=== PATIENT | female | born 1945 | race African-American/Black ===

== ENCOUNTER 2016-04-04 18:31 | Observation (INO) ==
--- NOTE | 2016-04-04 19:07 | ED.PDOC ---
General ED Provider: Dr. BALDOMERO MARTINEZ Chief Complaint: Respiratory Complaint Stated Complaint: Patient is a 70 year old femal who has a Pacemaker/ difibrilaltor who states that she having some wheezing 3 days ago with some nausea and diaphoresis. She also received a call from [employer] today and was told her defibrilator fired on Sunday at 4 in the morning. when she was having these symptoms. Pt stated she feels SOA when she walks, but no other symptoms. Time Seen by Physician: 19:06 Mode of Arrival: Walk-In Information Source: Patient Exam Limitations: No limitations Primary Care Provider: AMPARO DIAZ Nursing and Triage Documentation Reviewed and Agree: Yes Cardiovascular Complaint Exam - Chest Pain Complaint/Exam Onset: Sudden Duration: 1 hour Symptoms Are: Resolved Timing: Intermittent Associated Signs and Symptoms: Reports: Diaphoresis, Nausea, Short of air (with waking occationally ). Denies: Vomiting, Fever, Palpitations, Cough Related Surgical History: Reports: Pacemaker AMI/ACS Risk Factors: Reports: Hypertension TAD Risk Factors: Reports: Hypertension Prior Care for this Complaint: No Recent Stress Test: No Recent Echo/LV Function: No JVD Present: No Subcutaneous Emphysema Present: No Diminshed Breath Sounds: No Reproducible Chest Wall Pain: No Bilateral Pulses Present: No Unequal Pulses Noted: No If Risk Factors for AMI/ACS Consider: EKG, Cardiac Enzymes Differential Diagnoses: Other Quality Indicator For Non-Traumatic Chest Pain/Syncope: EKG Performed Review of Systems - Review Of Systems Constitutional: Reports: No symptoms Eyes: Reports: No symptoms Ears, Nose, Mouth, Throat: Reports: No symptoms Respiratory: Reports: Short of air, Wheezing Cardiac: Reports: No symptoms GI: Reports: Nausea (3 days ago ) : Reports: No symptoms Musculoskeletal: Reports: No symptoms Skin: Reports: No symptoms Neurological: Reports: No symptoms Endocrine: Reports: No symptoms, Other (diaphroresis on 3 days ago ) Hematologic/Lymphatic: Reports: No symptoms All Other Systems: Reviewed and Negative Past Medical History - Past Medical History Endocrine: Reports: None Cardiovascular: Reports: Hypertension Respiratory: Reports: None Hematological: Reports: Anemia Gastrointestinal: Reports: GERD Genitourinary: Reports: None Neuro/Psych: Reports: TIA Musculoskeletal: Reports: Arthritis Cancer: Reports: None Last Menstrual Period: N/A - Surgical History General Surgical History: Reports: Pacemaker (defibrilltor. ) - Family History Family History: Reports: Heart - Social History Smoking Status: Former smoker Hx Substance Use: No Alcohol Screening: None - Immunizations Tetanus Shot up to Date: Yes Physical Exam - Physical Exam Appearance: Well-appearing, No pain distress, Well-nourished Eyes: ETTA, EOMI, Conjunctiva clear ENT: Oropharynx normal Neck: Supple Respiratory: Airway patent, Breath sounds clear, Breath sounds equal, Respirations nonlabored Cardiovascular: RRR, Pulses normal, No rub, No murmur GI/: Soft, Nontender, No masses, Bowel sounds normal, No Organomegaly Musculoskeletal: Normal strength, ROM intact, No edema, No calf tenderness Skin: Warm, Dry, Normal color Neurological: Sensation intact, Motor intact, Reflexes intact, Cranial nerves intact, Alert, Oriented Psychiatric: Affect appropriate, Mood appropriate Interpretation - Urologic Surgeon Time of Urologic Surgeon Interpretation: 19:00 Ectopy: PVCs - EKG Interpretation Time of EKG #1: 19:16 Rate: Normal Rhythm: Sinus Ectopy: PVCs [place]: Left Interpretation: Multiple PVCS. Physician Notification - Case Discussed Physician Notified: Luis Time of Notification: 21:15 (Ok to admits for observation. ) Critical Care Note - Critical Care Note Total Time (mins): 15 Course - Course Hematology/Chemistry: 04/04/16 19:14 04/04/16 19:14 Orders, Labs, Meds: Lab Review 04/04/16 04/04/16 19:14 19:17 WBC 10.13 RBC 4.33 Hgb 12.2 Hct 35.9 L MCV 82.9 MCH 28.2 MCHC 34.0 RDW Coeff of Greg 15.6 H Plt Count 259 Immature Gran % (Auto) 0.3 Neut % (Auto) 84.9 Lymph % (Auto) 9.9 L Schuyler % (Auto) 3.9 Eos % (Auto) 0.7 Baso % (Auto) 0.3 Immature Gran # (Auto) 0.0 Neut # 8.6 H Lymph # 1.0 Schuyler # 0.4 Eos # 0.1 Baso # 0.0 D-Dimer 0.72 Sodium 142 Potassium 3.4 L Chloride 103 Carbon Dioxide 26 Anion Gap 16.4 BUN 16 Creatinine 0.89 Estimated GFR (MDRD) 76.00 BUN/Creatinine Ratio 17.97 Glucose 105 Calcium 9.5 Magnesium 2.2 Total Bilirubin 1.01 AST 25 ALT 19 Alkaline Phosphatase 62 Total Creatine Kinase 60 Troponin I 0.0740 B-Natriuretic Peptide 1452 H Total Protein 8.0 Albumin 4.1 Globulin 3.9 Albumin/Globulin Ratio 1.05 Orders Category Date Time Status PLACE PATIENT OBSERVATION .TO MEDSURG (MONITORED BED ADMISSION 04/04/16 21: 21 Active ) EKG-(ED ONLY) Stat CARDIO 04/04/16 19:06 Completed EKG-(IP & OP ONLY) Routine CARDIO 04/05/16 06:00 Ordered ACTIVITY .Up ad Jana CARE 04/04/16 21:23 Active INTAKE & OUTPUT Q8HR CARE 04/04/16 21:22 Active TELEMETRY MONITORING TELE CARE 04/04/16 21:23 Active VITAL SIGNS Q8HR CARE 04/04/16 21:23 Active CARDIAC DIET DIETARY 04/04/16 Breakfast Ordered BASIC METABOLIC PANEL DAILY@0600 LAB 04/05/16 06:00 Ordered BASIC METABOLIC PANEL DAILY@0600 LAB 04/06/16 06:00 Ordered BASIC METABOLIC PANEL DAILY@0600 LAB 04/07/16 06:00 Ordered BASIC METABOLIC PANEL DAILY@0600 LAB 04/08/16 06:00 Ordered BASIC METABOLIC PANEL DAILY@0600 LAB 04/09/16 06:00 Ordered BASIC METABOLIC PANEL DAILY@0600 LAB 04/10/16 06:00 Ordered BASIC METABOLIC PANEL DAILY@0600 LAB 04/11/16 06:00 Ordered BASIC METABOLIC PANEL DAILY@0600 LAB 04/12/16 06:00 Ordered BASIC METABOLIC PANEL DAILY@0600 LAB 04/13/16 06:00 Ordered BASIC METABOLIC PANEL DAILY@0600 LAB 04/14/16 06:00 Ordered BASIC METABOLIC PANEL DAILY@0600 LAB 04/15/16 06:00 Ordered BASIC METABOLIC PANEL DAILY@0600 LAB 04/16/16 06:00 Ordered BASIC METABOLIC PANEL DAILY@0600 LAB 04/17/16 06:00 Ordered BASIC METABOLIC PANEL DAILY@0600 LAB 04/18/16 06:00 Ordered BASIC METABOLIC PANEL DAILY@0600 LAB 04/19/16 06:00 Ordered BASIC METABOLIC PANEL DAILY@0600 LAB 04/20/16 06:00 Ordered BASIC METABOLIC PANEL DAILY@0600 LAB 04/21/16 06:00 Ordered BASIC METABOLIC PANEL DAILY@0600 LAB 04/22/16 06:00 Ordered BASIC METABOLIC PANEL DAILY@0600 LAB 04/23/16 06:00 Ordered BASIC METABOLIC PANEL DAILY@0600 LAB 04/24/16 06:00 Ordered BNP [B-TYPE NATRIURETIC PEPTIDE] Stat LAB 04/04/16 19:14 Completed CBC W/ AUTO DIFF Stat LAB 04/04/16 19:14 Completed COMPREHENSIVE METABOLIC PANEL Stat LAB 04/04/16 19:14 Completed CREATINE KINASE Stat LAB 04/04/16 19:14 Completed D-DIMER Stat LAB 04/04/16 19:17 Completed MAGNESIUM Stat LAB 04/04/16 19:14 Completed TROPONIN I Stat LAB 04/04/16 19:14 Completed Albuterol Sulfate [Proair Hfa] MEDS 04/04/16 21:26 Ordered 2 puff IH Q4-6H PRN Clopidogrel Bisulfate [Plavix] MEDS 04/05/16 09:00 Ordered 75 mg PO DAILY Enoxaparin Sodium [Lovenox] MEDS 04/05/16 09:00 Ordered 40 mg SUBCUT DAILY Furosemide [Lasix Tab] MEDS 04/05/16 09:00 Ordered 20 mg PO BID L.acidoph,Paracasei, B.lactis [Probiotic] MEDS 04/05/16 09:00 Ordered 1 cap PO DAILY Metolazone [Zaroxolyn] MEDS 04/04/16 21:26 Ordered 2.5 mg PO DAILY PRN Multivits-Min/Iron/FA/Lutein [Centrum Silver Women MEDS 04/05/16 09:00 Ordered Tablet] 1 tab PO DAILY Radiant-3 Fatty Acids/Fish Oil [Fish Oil 1,000 mg Capsule MEDS 04/05/16 09:00 Ordered ] 1 each PO DAILY Ondansetron HCl/Pf [Zofran 4 mg/2 ml] MEDS 04/04/16 21:21 Ordered 4 mg IVP Q6H PRN Potassium Chloride [Potassium Chloride Premix Run] 20 MEDS 04/04/16 21:25 Active meq Premix 100 ml Water 1 bag IV ONCE Potassium Chloride [Potassium Chloride] MEDS 04/05/16 09:00 Ordered 20 meq PO DAILY Pravastatin Sodium [Pravachol] MEDS 04/05/16 09:00 Ordered 20 mg PO DAILY Prednisone MEDS 04/06/16 09:00 Ordered 2.5 mg PO EVERY OTHER DAY Sotalol HCl [Betapace] MEDS 04/05/16 09:00 Ordered 40 mg PO BID RESUSCITATION STATUS Routine OTHERS 04/04/16 21:21 Ordered CHEST, 2 VIEWS PA & LAT Stat RADS 04/04/16 20:11 Taken Medications Generic Name Dose Route Start Last Admin Trade Name Freq PRN Reason Stop Dose Admin Albuterol Sulfate 2 puff 04/04/16 21:26 Proair Hfa IH Q4-6H PRN Shortness of breath Clopidogrel Bisulfate 75 mg 04/05/16 09:00 Plavix PO DAILY [facility] Enoxaparin Sodium 40 mg 04/05/16 09:00 Lovenox SUBCUT DAILY KAROL Furosemide 20 mg 04/05/16 09:00 Lasix Tab PO BID KAROL Potassium Chloride 20 meq/ 100 mls @ 50 mls/hr 04/04/16 21:25 Sterile Water IV 04/04/16 23:24 ONCE STA Metolazone 2.5 mg 04/04/16 21:26 Zaroxolyn PO DAILY PRN Edema Non-Formulary Medication 1 cap 04/05/16 09:00 L.Acidoph,Paracasei, B.Lactis [Probiotic] PO DAILY KAROL Non-Formulary Medication 1 tab 04/05/16 09:00 Multivits-Min/Iron/Fa/Lutein [Centrum Silver Women Tablet] PO DAILY KAROL Non-Formulary Medication 1 each 04/05/16 09:00 Radiant-3 Fatty Acids/Fish Oil [Fish Oil 1,000 Mg Capsule] PO DAILY KAROL Non-Formulary Medication 20 meq 04/05/16 09:00 Potassium Chloride [Potassium Chloride] PO DAILY KAROL Ondansetron HCl 4 mg 04/04/16 21:21 Zofran 4 Mg/2 Ml IVP Q6H PRN Nausea / Vomiting Pravastatin Sodium 20 mg 04/05/16 09:00 Pravachol PO DAILY KAROL Prednisone 2.5 mg 04/06/16 09:00 Prednisone PO EVERY OTHER DAY KAROL Sotalol HCl 40 mg 04/05/16 09:00 Betapace PO BID [facility] Vital Signs: Temp Pulse Resp BP Pulse Ox 04/04/16 18:31 97.4 F L 81 20 116/71 94 L ITALO Risk Score ITALO Risk Score: Risk Score Odds of by 30D 0 0.1 (0.1-0.2) 1 0.3 (0.2-0.3) 2 0.4 (0.3-0.5) 3 0.7 (0.6-0.9) 4 1.2 (1.0-1.5) 5 2.2 (1.9-2.6) 6 3.0 (2.5-3.6) 7 4.8 (3.8-6.1) Departure - Departure Time of Disposition: 21:31 Disposition: PLACED OBSERVATION Discharge Problem: Hypokalemia Dyspnea Qualifiers: Dyspnea type: dyspnea on exertion Qualifier Code: (R06.09) Other forms of dyspnea Condition: Fair Pt referred to PMD for follow-up: No (Admitted ) Allergies/Adverse Reactions: Allergies aspirin Adverse Reaction (Verified 12/28/15 00:34) cholecalciferol (vitamin D3) [From Vitamin D3] Adverse Reaction (Verified 00:34) ciprofloxacin Adverse Reaction (Verified 12/28/15 00:34) codeine Adverse Reaction (Verified 12/28/15 00:34) dexamethasone [From Decadron] Adverse Reaction (Verified 12/28/15 00:34) dexamethasone sod phosphate [From Decadron] Adverse Reaction (Verified 12/28/15 00:34) ergocalciferol (vitamin D2) [From Vitamin D2] Adverse Reaction (Verified 00:34) constipation fluticasone propionate [From Advair Diskus] Adverse Reaction (Verified 12/28/15 00:34) hydrochlorothiazide Adverse Reaction (Verified 12/28/15 00:34) angioedema salmeterol xinafoate [From Advair Diskus] Adverse Reaction (Verified 12/28/15 00 :34) spironolactone Adverse Reaction (Verified 12/28/15 00:34) Sulfa (Sulfonamide Antibiotics) Adverse Reaction (Verified 12/28/15 00:34) Home Medications: Ambulatory Orders Clopidogrel Bisulfate [Plavix] 75 mg PO DAILY 11/17/14 Furosemide [Lasix] 20 mg PO BID 11/17/14 Radiant-3 Fatty Acids/Fish Oil [Fish Oil 1,000 mg Capsule] 1 each PO DAILY Pravastatin Sodium [Pravachol] 20 mg PO DAILY 11/17/14 Sotalol HCl [Sotalol] 40 mg PO BID 11/17/14 Metolazone 2.5 mg PO DAILY PRN 12/28/15 Prednisone 2.5 mg PO EVERY OTHER DAY 12/28/15 Albuterol Sulfate [Proair Hfa] 2 puff INH Q4-6H PRN 04/04/16 L.acidoph,Paracasei, B.lactis [Probiotic] 1 cap PO DAILY 04/04/16 Multivits-Min/Iron/FA/Lutein [Centrum Silver Women Tablet] 1 tab PO DAILY Potassium Chloride 10 meq PO DAILY 04/04/16 Disposition Discussed With: Patient, Family
[2016-04-04 19:19] LABS: BASOPHILS % (AUTO) 0.3 % (0.0-3.0); EOSINOPHILS # (AUTO) 0.1 K/ul (0.0-0.7); EOSINOPHILS % (AUTO) 0.7 % (0.0-7.0); HEMATOCRIT 35.9 % (37.0-47.0); HEMOGLOBIN 12.2 g/dl (12.0-16.0); IMMATURE GRANULOCYTE % (AUTO) 0.3 % (0.0-5.0); LYMPHOCYTES % (AUTO) 9.9 (10.0-50.0); MEAN CORPUSCULAR HEMOGLOBIN 28.2 pg (27.0-31.0); MEAN CORPUSCULAR VOLUME 82.9 fl (81.0-99.0); MONOCYTES # (AUTO) 0.4 K/uL (0.4-2.0); MONOCYTES % (AUTO) 3.9 (0-10); NEUTROPHILS # (AUTO) 8.6 K/ul (2.0-6.9); NEUTROPHILS % (AUTO) 84.9; PLATELET COUNT 259 10^3/uL (140-440); RED BLOOD COUNT 4.33 10^6/ul (4.20-5.40); WHITE BLOOD COUNT 10.13 K/ul (4.6-10.2)
[2016-04-04 19:44] LABS: ALBUMIN 4.1 g/dL (3.4-5.0); ALBUMIN/GLOBULIN RATIO 1.05; ANION GAP 16.4; BILIRUBIN,TOTAL 1.01 mg/dL (0.00-1.20); BUN/CREATININE RATIO 17.97; CALCIUM 9.5 mg/dL (8.2-10.2); CREATININE 0.89 mg/dL (0.60-1.30); MAGNESIUM 2.2 mg/dL (1.7-2.2); POTASSIUM 3.4 mmol/L (3.5-5.10); TROPONIN I 0.074 ng/ml (0.0000-0.4000)
[2016-04-04] MEDS ORDERED: ZOFRAN 4 MG/2 ML IVP PRN (21:21)
[2016-04-04] MEDS ORDERED: POTASSIUM CHLORIDE PREMIX RUN 20 MEQ in PREMIX 100 ML WATER 1 BAG IV STA (21:25)
[2016-04-04] MEDS ORDERED: PROAIR HFA IH PRN (21:26)
[2016-04-04] MEDS ORDERED: ZAROXOLYN PO PRN (21:26)
[2016-04-04 22:39] VITALS: BMI 31.0
[2016-04-04] MEDS ORDERED: POTASSIUM CHLORIDE PREMIX RUN 100 ML IV ONE (23:29)
[2016-04-05 04:50] LABS: ANION GAP 12.2; BUN/CREATININE RATIO 17.89; CREATININE 0.95 mg/dL (0.60-1.30); POTASSIUM 3.2 mmol/L (3.5-5.10)
--- NOTE | 2016-04-05 05:18 | DI ---
EXAM: Chest, two views, 04/04/2016 HISTORY: Shortness of a air COMPARISON: 12/27/2015 FINDINGS / IMPRESSION: Cardiomediastinal contours appear enlarged. Mediastinal contours appear sim ilar to the prior study. Left-sided pacer device is in place. There is no focal pulmonary consolidation. No pleural effusion or pneumothorax.
[2016-04-05] MEDS ORDERED: K-DUR PO STA (08:45)
[2016-04-05] MEDS ORDERED: IRON PO SCH (09:00)
[2016-04-05] MEDS ORDERED: NON-FORMULARY MEDICATION (Potassium Chloride [Potassium Chloride] 20 MEQ) PO SCH ×44 (09:00→12:00)
[2016-04-05] MEDS ORDERED: K-DUR PO SCH ×2 (09:00→12:00)
[2016-04-05] MEDS ORDERED: NON-FORMULARY MEDICATION (Omega-3 Fatty Acids/Fish Oil [Fish Oil 1,000 Mg Capsule] 1 EACH) PO SCH ×22 (09:00)
[2016-04-05] MEDS ORDERED: OMEGA-3 FISH OIL PO SCH (09:00)
[2016-04-05] MEDS ORDERED: BETAPACE PO SCH (09:00)
[2016-04-05] MEDS ORDERED: LOVENOX SUBCUT SCH (09:00)
[2016-04-05] MEDS ORDERED: PLAVIX PO SCH ×2 (09:00→10:00)
[2016-04-05] MEDS ORDERED: PRAVACHOL PO SCH ×2 (09:00→10:00)
[2016-04-05] MEDS ORDERED: LASIX TAB PO SCH ×2 (09:00→11:45)
[2016-04-05] MEDS ORDERED: MULTIVITS MIN PO SCH (09:00)
[2016-04-05] MEDS ORDERED: [UNRECOGNIZED DRUG - OTHER] PO SCH (09:00)
[2016-04-05] MEDS ORDERED: LUTEIN PO SCH (09:00)
[2016-04-05] MEDS ORDERED: ACIDOPH PARACASEI B LACTIS PO SCH ×2 (09:00→12:00)
[2016-04-05] MEDS ORDERED: MULTIVITAMIN PO SCH (09:00)
[2016-04-05] MEDS ORDERED: SOTALOL HCL 40 MG PO SCH ×21 (09:45)
[2016-04-05] MEDS ORDERED: ZAROXOLYN PO PRN (09:55)
[2016-04-05] MEDS ORDERED: PROAIR HFA IH PRN (09:58)
[2016-04-05] MEDS ORDERED: FUROSEMIDE 10 MG PO SCH ×2 (11:15→11:45)
--- NOTE | 2016-04-05 13:10 | PCM.PROG ---
Attending Provider: ATTENDING PROVIDER: Dr. BLAKE ALATORRE DATE OF SERVICE: 04/05/16 SUBJECTIVE: The patient was admitted with palpitations. The patient has not had any palpitations since admission. She states she gets minimal shortness of breath with exertion but this is normal for her. The patient has no chest pain. No PND , no orthopnea. REVIEW OF SYSTEMS: CONSTITUTIONAL: No fever, no chills. ENDOCRINE: No weight loss or weight gain. HEENT: No sinus drainage, no sore throat. CVS: No angina symptoms. No CHF symptoms. No palpitations. No atypical chest pain for CAD. Shortness of breath on minimal exertion. No PND, no orthopnea. RESPIRATORY: No cough, no hemoptysis. GI: No melena. No abdominal pain. No nausea, no vomiting. : No hematuria. No polyuria. SKIN: No rash. No wounds. MUSCULOSKELETAL: No pain. HEAT [employer]IC: No blackout, no dizziness. No headache. No double vision. PSYCHIATRIC: Not anxious; no depression. No suicidal thoughts. No homicidal thoughts. PHYSICAL EXAMINATION: GENERAL: Sitting in bed in no distress. VITAL SIGNS: Temperature 97.7 F, Pulse 87, Respiratory Rate 16, BP 112/79, Pulse Ox 97% HEENT: Normocephalic, atraumatic. Mucosa is dry, pallor positive. NECK: No JVP, no carotid bruit. No lymphadenopathy. CARDIAC: S1, S2, no S3. No murmur, gallop or regurgitation. LUNGS: Clear to auscultation. ABDOMEN: Soft, non-tender. Bowel sounds active. No rigidity, guarding or CVA tenderness. EXTREMITIES: No clubbing, cyanosis or edema. NEUROLOGIC: Awake, alert and oriented x3. LYMPHATIC: No palpable lymph nodes SKIN: Not dry. Intact. MUSCULOSKELETAL: No joint swelling. LAB REVIEW: 04/05/16 04:00 04/05/16 04:00: Sodium 141, Potassium 3.2 L, Chloride 103, Carbon Dioxide 29, Anion Gap 12.2, BUN 17, Creatinine 0.95, Estimated GFR (MDRD) 70.00, BUN/ Creatinine Ratio 17.89, Glucose 108, Calcium 9.0 ASSESSMENT: 1. Palpitations 2. Hypokalemia 3. CHF, stable 4. AICD 5. Hypertension 6. Dyslipidemia PLAN: 1. Holter monitor 2. Repeat potassium 60 mg p.o. and 20 mg IV by 2 p.m. one time dose (patient refuses the IV potassium) so will give 20 mg p.o. Plan and coordination of the patient's care discussed in the presence of Finance Advisor and nurse. CONDITION: Stable SCRIBED BY: VIKAS CAMACHO Contact Centre Supervisor scribed while in presence of service performed by Dr. BLAKE ALATORRE on 04/05/16 ([id number])
[2016-04-05 14:29] VITALS: BP 110/65; TEMP 98.3
[2016-04-06] MEDS ORDERED: PREDNISONE PO SCH ×2 (08:00→09:00)
--- NOTE | 2016-04-07 10:05 | PN ---
DATE OF SERVICE: 04/04/16 CHIEF COMPLAINT: Palpitations SUBJECTIVE: The patient is a 70 year old female with history of dilated cardiomyopathy and AICD placement. The patient was having cough, congestion and shortness of breath but the patient felt like she had a shock for AICD and started having some palpitations so the patient got worried and came to the emergency room. The patient was seen by Dr. Dewitt and the evaluation showed the patient was mildly hypokalemic 3.4, BNP 1452 and her EKG showed lots of PVC's. Given her age and the multiple medical problems the patient was admitted for the observation for the palpitation and the hypokalemia. REVIEW OF SYSTEMS: CONSTITUTIONAL: No fever, no chills. Weakness and tiredness. HEENT: Normal. ENDOCRINE: No weight gain, no weight loss. CVS: No angina symptoms. No CHF symptoms. Palpitations. No atypical chest pain for CAD. Shortness of breath. No PND, no orthopnea. RESPIRATORY: No cough, no hemoptysis. GI: No nausea, no vomiting. No abdominal pain. : No hematuria. No polyuria. MUSCULOSKELETAL:. No joint swelling. PSYCHIATRIC: Not anxious. No depression. No suicidal thoughts. No homicidal thoughts. SKIN: Intact. No rash. PHYSICAL EXAMINATION: V/S: Blood pressure 116/71, respiratory 20, heart rate 85 and saturation 95%. HEENT: Normocephalic, atraumatic. Ears, eyes, nose and throat normal. Mucosa Dry. NECK: Supple. No JVD, no carotid bruit. No lymphadenopathy. LUNGS: Decreased and clear to auscultation. No rales or rhonchi. HEART: S1, S2 normal. No S3. No murmur, gallop or regurgitation. ABDOMEN: Soft, nontender. Bowel sounds active. No rigidity. No rebound or guarding. No CVA tenderness. EXTREMITIES: No clubbing, cyanosis or pedal edema. MUSCULOSKELETAL: No joint swelling. NEUROLOGIC: Awake, alert, oriented times three. No focal deficit. LYMPHATIC: No lymph nodes palpable. SKIN: Intact. LABS: WBC 10.13, hgb 12.2, hct 35.9, plt count 259, D-dimer 0.72, sodium 142, potassium 3.4, chloride 103, bicarb 26, BUN 16, creatinine 0.89 and BNP 1452. ASSESSMENT: 1. Palpitations 2. Hypokalemia 3. Acute on chronic CHF, ejection fraction 25 to 30 4. AICD replacement 5. Coronary Artery Disease 6. Congestive heart failure 7. COPD 8. Osteoarthritis 9. Depression PLAN: 1. Admit patient to the observation 2. 20 IV potassium 3. Continue the home medications 4. Lovenox for the DVT prophylaxis Will follow the patient in daily rounds. TIME SPENT: More than 30 minutes MTDD
--- NOTE | 2016-04-07 11:41 | HOLTER ---
PATIENT INFORMATION AND COMMENTS Indications: PALPITATIONS, SOB __ Patient Medications: PROAIR, PLAVIX, LOVENOX, ZAROXOLYN, K-DUR, PRAVACHOL, PREDNISONE, BETAPACE __ Pre-procedure Summary: Protocol: Standard Heart Rate Started: 04/05/1639 Minimum: 48/BPM Weight: 181 LBS Ended: 04/06/16826 Maximum: 138/BPM Height: 64" Duration: 22 HRS 48 MIN Average: 82/BPM _ INTERPRETATIONS/OBSERVATIONS: 1. BASIC RHYTHM: SINUS, RATE 50 TO 130/MINUTE, AVERAGE 80/MINUTE 2. FREQUENT PVC'S AND INFREQUENT PAC'S--3 TO 6 BEAT TACHYCARDIA NOTED [address] NO ST-T WAVE CHANGES FROM BASELINE 4. NO CORRELATION WITH ACTIVITY LOG 5. NO SUSTAINED TACHYCARDIA NOTED MTDD
--- NOTE | 2016-04-07 11:56 | PN ---
DATE OF SERVICE: 04/05/16 AND 04/06/16 - SEEN BY DR. DIAZ SUBJECTIVE: The patient was seen yesterday in the hospital 04/05/16. The patient was seen today during the time I performed her 2D 'M' Mode echo. DISCUSSION: The patient had not been feeling good. She had some sweaty spells with shortness of breath, weakness. According to [facility] in [place], the patient was shocked and likely had V-fib the morning of Sunday. The patient was called and she was asked to be on Amiodarone. While she was in the hospital I saw her. She flatly refused to be on Amiodarone; under no circumstances she is going to use Amiodarone. She has read up on Amiodarone with side effects. I tried to convince her that a small dose of Amiodarone should be tried while she is in the hospital. I also explained to her that what she had was near , which is V-fib and need to prevent this from happening even though the defibrillator may protect her. She is very intelligent. Two daughters were present in the room. The patient flatly refused. She was oriented to time, place and person. She doesn't have any symptoms of CHF. Otherwise, her cardiovascular status was stable while she was in the hospital. She wanted to go home and in fact, she made a statement that she is going home no matter what. She is feeling good so she was discharged by Dr. Smith. This morning I saw the patient on 04/06/16, for 2D 'M' mode echo. The patient's ejection fraction is 25%. She was noted to have a few PVCs. Again, the patient was explained about the finding that she has dilated cardiomyopathy which makes her prone to arrhythmias and sudden (V-fib is likely cause of ). The patient had holter monitor put on which was removed and I have not read it yet. The patient was again advised to get on the medication which could help supraventricular tachyarrhythmias or V-tach, V-fib. The patient understands but she again declined. The daughter was present. She needs to be followed as an outpatient. The patient has declined to go to [facility] for followup. I strongly advised her to go to [facility] and discussed with them the same medication conditions she has a long with Amiodarone that they want her to be started on. The patient declined tht she is not going to go to [facility] and she doesn't want to discuss anything about any medication, that she is feeling fine. At the present time, she is up and about, has no symptoms of CHF. CONDITION: STABLE TIME SPENT: More than 30 minutes. Plan and coordination of the patient's care discussed in the presence of nurse. YUNI
--- NOTE | 2016-04-13 08:40 | SSS ---
DATE OF SERVICE: 04/05/16 REASON FOR CONSULTATION/ADMISSION: Hypokalemia and Palpitations HISTORY OF PRESENT ILLNESS: Three days ago with shortness of air, wheezing, nausea and diaphoresis. Call on 04/03/16 from [place] that defibrillator "fired" at 0400. When having symptoms. Shortness of air with activity. REVIEW OF SYSTEMS: CONSTITUTIONAL: No night sweats. No fatigue, malaise, lethargy. No fever or chills. HEENT: Eyes: No visual changes. No eye pain. No eye discharge. ENT: No runny nose. No epistaxis. No sinus pain. No sore throat. No odynophagia. No ear pain. No congestion. RESPIRATORY: No cough, no congestion. No hemoptysis. CARDIOVASCULAR: No angina symptoms. No CHF symptoms. No atypical chest pain for CAD. No palpitations. Shortness of breath with occasional wheezing. GASTROINTESTINAL: No abdominal pain. No nausea or diaphoresis currently, three days ago. No diarrhea or constipation. No hematemesis. No hematochezia. GENITOURINARY: No urgency. No frequency. No dysuria. No hematuria. No obstructive symptoms. No discharge. No pain. No significant abnormal bleeding. MUSCULOSKELETAL: No musculoskeletal pain. No joint swelling. NEUROLOGICAL: Awake, alert, oriented to time, place and person. No headache. No neck pain. No syncope. No seizures. No dizziness. PSYCHIATRIC: Not anxious. No depression. No suicidal thoughts. No homicidal thoughts. SKIN: No rash. No lesions. No wounds. ENDOCRINE: No unexplained weight loss. No weight gain. HEMATOLOGIC/LYMPHATIC: No anemia. No purpura. No petechiae. No prolonged or excessive bleeding. No palpable lymph nodes. PAST HISTORY: AICD/Pacemaker Hypertension Dyslipidemia Congestive heart failure COPD Asthma GERD Osteoarthritis Anemia PERSONAL/FAMILY HISTORY/SOCIAL HISTORY: Previous smoker (stopped 45 years ago) No alcohol. and lives alone. Independent with ADL's. Family history of Cancer. PHYSICAL EXAMINATION: GENERAL: The patient is an [place] female, age 70. Height 64in and weight 181 with BMI 31.1. Independent with ADL's. No BME VITAL SIGNS: Temperature 98.1, pulse 87, respiratory 20, oxygen saturation 95% on room air and blood pressure 118/64. HEENT: Head normocephalic, atraumatic. Eyes: Extraocular muscles are intact. Pupils are equal, round and reactive to light and accommodation. Ears: No lesions. Nose appeared normal. Throat: No exudate or erythema. NECK: Supple. No JVD, no carotid bruit. No lymphadenopathy or thyromegaly. LUNGS: Bilaterally equal and Clear to auscultation. Percussion note normal. Chest symmetrical. HEART: S1, S2, no S3. No murmurs. No cyanosis or clubbing. No ascites. Pulses: Dorsalis pedis and posterior tibial pulses +1 to +2 both sides. ABDOMEN: Soft. Nontender. Bowel sounds active. No CVA tenderness. No mass felt. EXTREMITIES: No edema. Full range of motion of all extremities, equal. NEUROLOGIC: No focal deficit. Cranial nerves II through XII are grossly intact. No headache, no double vision or headache. Awake, alert and oriented times three. No motor deficit. SKIN: Not dry. Intact. Turgor - normal. LYMPHATIC: No palpable lymph nodes/no lymphedema. MUSCULOSKELETAL: Normal joints with no swelling. Muscle tone is normal. Old/present records reviewed: Yes Office records reviewed: Yes EDUCATION CARRIED OUT: No salt diet Medication side effects. ALLERGIES: Aspirin Cholecalciferol Ciprofloxacin Codeine Dexamethasone Dexamethasone Sod Phosphate Ergocalciferol Fluticasone propionate Salmeterol Xinafoate Spironolactone Sulfa MEDICATIONS: Plavix Lasix [place] 3 Pravastatin Sotalol Metolazone Prednisone ProAir Probiotic MVI KCL LABS/EKG'S/X-RAY/ECHO/ABG: WBC 10.13,Potassium 3.4, BNP 1452, EKG sinus with PVC's and Chest x-ray no focal consolidation. PROGRESS NOTES: In chart. Case Discussed with Attending Physician: Yes Case Discussed with Family: Yes DIAGNOSES: 1. Palpitations 2. Hypokalemia 3. Dilated Cardiomyopathy 4. Ejection fraction 25% 5. AICD/Pacemaker 6. Dyslipidemia 7. COPD 8. GERD RECOMMENDATIONS/PLAN: 1. Discharge Home 2. Return 04/06/16 for Holter Monitor removal and echocardiogram 3. Increase Potassium to 20mg daily 4. Continue all other medications 5. Appointment 04/12/[address] Haynes TIME SPENT: More than 70 minutes. [facility]
== END 2016-04-05 15:08 | disposition home or self-care (01) ==
LOC: ED 18:31 → MEDSURG B 21:37
PROVIDERS: ADMIT Emergency Medicine; ATTEND Emergency Medicine
DX: I49.3 Ventricular premature depolarization (principal); E87.6 Hypokalemia; I42.0 Dilated cardiomyopathy; I50.9 Heart failure, unspecified; R06.02 Shortness of breath; I25.10 Atherosclerotic heart disease of native coronary artery without angina pectoris; J44.9 Chronic obstructive pulmonary disease, unspecified; I10 Essential (primary) hypertension; R06.09 Other forms of dyspnea; Z95.810 Presence of automatic (implantable) cardiac defibrillator; Z95.0 Presence of cardiac pacemaker; Z79.01 Long term (current) use of anticoagulants; Z79.899 Other long term (current) drug therapy
CPT/HCPCS: 36415; 80048; 80053; 82550; 83735; 83880; 84132; 84484; 85025; 85379; 93005; 93010; 96361; 96372; 97802; 99284

== ENCOUNTER 2016-04-06 06:43 | Outpatient (CLI) | payer OTHER ==
--- NOTE | 2016-04-07 11:05 | ECHO2D ---
Date of Exam: 04/06/16 Ordering Physician: AMPARO DIAZ Reason for Echo: PALPITATIONS, SOB, ETIOLOGY OF CARDIOMEGALY, CHF M-Mode Normal Adult Results LV Dimensions Normal Adult Results AoV Opening excursions >1.6 >1.6 LVEDD-base- 3.5-5.8 6.8 Ao root dimensions 2.0-3.7 2.5 LVESD-base- 3.1-4.6 L. Atrium dimensions 1.9-3.8 4.6 Post. Wall thickness 0.8-1.1 1.2 IV septum (thickness) 0.7-1.2 1.2 Post. Wall excursion 0.72-1.3 0.4 Septal motion 0.4 Systolic motion R. Ventricular cavity 1.5-2.0 NORMAL LVEF 60% 28% Paradoxical septal wall motion NORMAL 2-D :HYPOKINETIC LEFT VENTRICLE, NORMAL VALVES--ENLARGED LEFT VENTRICLE AND LEFT ATRIAL CAVITIES, TRACE TO MILD EFFUSION, NO THROMBUS M-MODE: MV: NORMAL AV: NORMAL TV: NORMAL PV: CHAMBER SIZE: ENLARGED LEFT ATRIAL AND LEFT VENTRICLE CAVITIES WALL MOTION: HYPOKINETIC LEFT VENTRICLE PERICARDIUM: TRACE TO MILD PERICARDIAL EFFUSION INTERPRETATION: 1. BORDERLINE LEFT VENTRICULAR HYPERTROPHY WITH ENLARGED LET ATRIAL CAVITY 2. HYPOKINETIC LEFT VENTRICLE WITH LEFT VENTRICULAR EJECTION FRACTION 28% 3. TRACE TO MILD PERICARDIAL EFFUSION 4. ENLARGED LEFT ATRIAL CAVITY MTDD
== END 2016-04-06 06:44 | disposition home or self-care (01) ==
LOC: CAR 06:43
PROVIDERS: ATTEND Internal Medicine
DX: R00.2 Palpitations (principal); R06.02 Shortness of breath

== ENCOUNTER 2016-05-22 14:23 | Outpatient (CLI) ==
--- NOTE | 2016-05-23 07:08 | DI ---
EXAM: CHEST FRONTAL AND LATERAL VIEWS HISTORY: Chronic obstructive pulmonary disease, shortness of breath. COMPARISON: 04/04/2016 FINDINGS: Stable cardiomegaly. Pacemaker unit unchanged. There is at least mild aortic atheroscle rosis. No acute infiltrates are seen. There is no consolidation, visible pleural fluid or pneumotho rax. Bones reveal no acute fracture. IMPRESSION: Cardiomegaly. No acute cardiopulmonary process.
== END 2016-05-22 14:24 | disposition home or self-care (01) ==
LOC: RAD 14:23
PROVIDERS: ATTEND Emergency Medicine
DX: J44.9 Chronic obstructive pulmonary disease, unspecified (principal); J45.909 Unspecified asthma, uncomplicated; I50.9 Heart failure, unspecified

== ENCOUNTER 2017-07-09 11:17 | Emergency (ER) | payer OTHER ==
[2017-07-09 11:28] VITALS: BMI 30.7
--- NOTE | 2017-07-09 13:29 | US ---
EXAM: ULTRASOUND ABDOMEN LIMITED HISTORY: Abdominal pain FINDINGS: Ultrasound abdomen, limited. Bains-scale ultrasound and color Doppler was performed. Live r size was normal at 12 cm. The liver parenchyma demonstrated normal sonographic appearance without e vidence of intrahepatic biliary dilatation or focal lesion. Patent and hepatopedal main portal vein. The gallbladder is distended and has significant wall thickening at 0.54 cm. There is gallbladder sl udge and at least one small stone. Common bile duct diameter was approaching upper limit normal at ne otoniel 0.6 cm. Cannot exclude a trace amount of pericholecystic ascites. Pancreas was poorly seen. IMPRESSION: Gallbladder distension, sludge and stones. Significant gallbladder wall thickening. Co mmon bile duct diameter upper limit normal. Possible trace amount of pericholecystic ascites. Consid er acute cholecystitis.
--- NOTE | 2017-07-09 13:45 | CT ---
EXAM: CT Abdomen without contrast. CT Pelvis without contrast. HISTORY: Abdominal pain. COMPARISON: Ultrasound earlier the same day. TECHNIQUE: Multiple axial images of the abdomen and pelvis were obtained without intravenous contras t. Images were reformatted in the sagittal and coronal plane. FINDINGS: Please note that evaluation of the abdominal and pelvic structures is limited due to lack of intravenous contrast. Heart is enlarged. Pacemaker leads partially imaged. Subsegmental atelectasis noted in the lung bas es. Degenerative changes present in the spine. Bilateral spondylolysis, spondylolisthesis at L5-S1 noted. Liver demonstrates normal contour. Gallbladder is distended with significant wall thickening. Calci fied stones seen within the gallbladder. There is pericholecystic edema. The pancreas, spleen, adre nal glands, and kidneys demonstrate normal contour. There is no hydronephrosis. There is evidence for bowel obstruction. The cecum appears in the right upper quadrant of the abdome n. Appendix may be located just below the inferior right hepatic lobe best seen on coronal imaging a nd is not distended. Diverticulosis noted. Small amount of free pelvic fluid noted. Uterus demonstrates normal contour. Urinary bladder is unr emarkable. No free air identified. Atherosclerotic calcifications present. Small fat-containing um bilical hernia noted. IMPRESSION: Findings suggest acute cholecystitis.
--- NOTE | 2017-07-09 13:50 | ED.PDOC ---
General ED Provider: Dr. KRISTIN GARCÍA Chief Complaint: Abdominal Pain Stated Complaint: EPIGASTRIC PAIN Time Seen by Physician: 11:29 (PAIN X 3 DAYS ) Mode of Arrival: Wheelchair Information Source: Patient Exam Limitations: No limitations Primary Care Provider: AMPARO DIAZ Nursing and Triage Documentation Reviewed and Agree: Yes (NO FEVER REPORTED ) Reviewed sepsis parameters & appropriate labs ordered?: Yes System Inflammatory Response Syndrome: Not Applicable Sepsis Protocol: For patient's 13 years and over: Temp is 96.8 and below OR 101 and greater Pulse >90 BPM Resp >20/minute Acutely Altered Mental Status Are patient's symptoms suggestive of a new infection, such as: -Pneumonia -Skin, Soft Tissue -Endocarditis -UTI -Bone, Joint Infection -Implantable Device -Acute Abdominal Infection -Wound Infection -Meningitis -Blood Stream Catheter Infection -Unknown System Inflammatory Response Syndrome: Not Applicable (NO FOOD INTAKE X 14 HOURS LAST BM LAST NIGHT LOOSE STOOLS) GI Complaint Exam - Abdominal Pain Complaint/Exam Onset: Gradual (PAIN OVER 3 DAYS WORSE TODAY) Duration: 3 DAYS Timing: Intermittent Initial Severity: Moderate Current Severity: Moderate Location of Pain: RUQ Radiates To: Reports: Chest (EPIGASTRIC ) Character: Reports: Cramping (TODAY ) Alleviating: Reports: None Associated Signs and Symptoms: Reports: Cough, Vomiting (X1 2 DAYS AGO LOOSE STOOLS ). Denies: Diaphoresis, Fever, Chest pain, Dizziness, Back pain, Constipation, Blood in stool, Dysuria, Urinary frequency, Decreased urine output , Decreased appetite, Vaginal bleeding, Vaginal discharge, Nausea, Diarrhea, Sore throat, Decreased activity AAA Risk Factors: Reports: Hypertension. Denies: Prior AAA, Primary relative AAA, Smoking Cardiac Risk Factors: Reports: Hypertension Ovarian Torsion Risk Factors: Reports: None Surgical Obstruction Risk Factors: Reports: None (BUT GUARDING ) Related Surgical History: Reports: None Patient Rh Status: Unknown Female Body Picture: 1 - GAURDING Differential Diagnoses: Bowel Obstruction, Pancreatitis, GB Quality Indicators for AMI: EKG in 10min. Quality Indicators for Cardiac Chest Pain: EKG in 10min. Quality Indicator For Non-Traumatic Chest Pain/Syncope: EKG Performed Review of Systems - Review Of Systems Constitutional: Reports: No symptoms Eyes: Reports: No symptoms Ears, Nose, Mouth, Throat: Reports: No symptoms Respiratory: Reports: No symptoms Cardiac: Reports: No symptoms GI: Reports: Abdominal pain : Reports: No symptoms Musculoskeletal: Reports: No symptoms Skin: Reports: No symptoms Neurological: Reports: No symptoms Endocrine: Reports: No symptoms Hematologic/Lymphatic: Reports: No symptoms All Other Systems: Reviewed and Negative Past Medical History - Past Medical History Previously Healthy: Yes Endocrine: Reports: None Cardiovascular: Reports: Hypertension Respiratory: Reports: None Hematological: Reports: Anemia Gastrointestinal: Reports: GERD Genitourinary: Reports: None Neuro/Psych: Reports: TIA Musculoskeletal: Reports: Arthritis Cancer: Reports: None Last Menstrual Period: NA - Surgical History General Surgical History: Reports: Pacemaker (defibrilltor. ) - Family History Family History: Reports: Heart - Social History Smoking Status: Former smoker Hx Substance Use: No Alcohol Screening: None Physical Exam - Physical Exam Appearance: Ill-appearing Ill-appearing: Moderate Pain Distress: Moderate Eyes: ETTA, EOMI, Conjunctiva clear ENT: Ears normal, Nose normal, Oropharynx normal Respiratory: Airway patent, Breath sounds clear, Breath sounds equal, Respirations nonlabored Cardiovascular: RRR, Pulses normal, No rub, No murmur GI/: No masses, Bowel sounds normal, No Organomegaly, Tender (RUQ REOUND ) Musculoskeletal: Normal strength, ROM intact, No edema, No calf tenderness Skin: Warm, Dry, Normal color Neurological: Sensation intact, Motor intact, Reflexes intact, Cranial nerves intact, Alert, Oriented Psychiatric: Affect appropriate, Mood appropriate Interpretation - Radiology Interpretation Radiology Interpretation By: Radiologist Radiology Results: Positive (ACUTE CHOLECYSTITIS) - Purchasing Intern Rate: Normal Rhythm: Sinus Ectopy: PVCs - EKG Interpretation Rate: Normal Rhythm: Sinus [place]: Left (LBBB, LAFB,POOR WAVE PROGRESSION, DOES NOT MEET ANY GARBOSSA CRITERIA FOR ACUTE ME AT THIS TIME ) ST Segment: Other (SEE BELOW) Physician Notification - Case Discussed Physician Notified: LEILANI Time of Notification: 14:10 (TRANSFER NOW) Physician Notified: NICHELLE FABIAN Time of Notification: 14:20 (TRANSFER ) Endorsed To/Discussed With: N Critical Care Note - Critical Care Note Total Time (mins): 0 Course - Course Hematology/Chemistry: 07/09/17 12:25 07/09/17 12:25 Orders, Labs, Meds: Lab Review 07/09/17 07/09/17 07/09/17 12:25 12:25 13:54 WBC 21.26 H RBC 5.12 Hgb 14.8 Hct 42.8 MCV 83.6 MCH 28.9 MCHC 34.6 RDW Coeff of Greg 17.7 H Plt Count 256 Immature Gran % (Auto) 1.3 Neut % (Auto) 89.6 Lymph % (Auto) 2.3 L [place] % (Auto) 6.6 Eos % (Auto) 0.1 Baso % (Auto) 0.1 Immature Gran # (Auto) 0.3 Neut # (Auto) 19.1 H Lymph # (Auto) 0.5 L [place] # (Auto) 1.4 Eos # (Auto) 0.0 Baso # (Auto) 0.0 PT 13.2 H INR 1.33 APTT 29.2 Sodium 135 L Potassium 3.5 Chloride 96 L Carbon Dioxide 26 Anion Gap 16.5 BUN 34 H Creatinine 1.01 Estimated GFR (MDRD) 65.00 BUN/Creatinine Ratio 33.66 Glucose 120 H Calcium 9.8 Total Bilirubin 3.3 H AST 21 ALT 29 Alkaline Phosphatase 99 Total Protein 6.8 Albumin 2.9 L Globulin 3.9 Albumin/Globulin Ratio 0.74 Amylase 18 L Lipase < 4 L Orders Category Date Time Status EKG-(ED ONLY) Stat CARDIO 07/09/17 12:17 Completed EKG-(ED ONLY) Stat CARDIO 07/09/17 13:54 Ordered NPO REMINDER: IMAGING ONCE CARE 07/09/17 12:16 Active AMYLASE Stat LAB 07/09/17 12:25 Completed BLOOD CULTURE (ED ONLY) Stat LAB 07/09/17 Ordered CBC W/ AUTO DIFF Stat LAB 07/09/17 12:25 Completed COMPREHENSIVE METABOLIC PANEL Stat LAB 07/09/17 12:25 Completed LACTIC ACID Stat LAB 07/09/17 13:53 Ordered LIPASE Stat LAB 07/09/17 12:25 Completed PARTIAL THROMBOPLASTIN TIME Stat LAB 07/09/17 13:54 Ordered PROCALCITONIN Stat LAB 07/09/17 Ordered PT WITH INR Stat LAB 07/09/17 13:54 Ordered URINALYSIS C & S IF INDICATED Stat LAB 07/09/17 12:15 Uncollected Ampicillin Sodium/Sulbactam Na [Unasyn] MEDS 07/09/17 14:02 Discontinued 3 gm .ROUTE .STK-MED ONE Ampicillin Sodium/Sulbactam Na [Unasyn] 3 gm MEDS 07/09/17 13:53 Ordered 0.9 % Sodium Chloride [Sodium Chloride] [address] ABDOMEN/PELVIS WO CONTRAST Stat RADS 07/09/17 12:15 Completed ULTRASOUND ABDOMEN, RT. UPPER QUAD [U/S ABDOMEN, RT. RADS 07/09/17 12:16 Completed UPPER QUAD] Stat Medications Generic Name Dose Route Start Last Admin Trade Name Freq PRN Reason Stop Dose Admin Ampicillin Sodium/Sulbactam 100 mls @ 100 mls/hr 07/09/17 13:53 Sodium 3 gm/ Sodium Chloride IV 07/09/17 14:52 ONCE STA Vital Signs: Temp Pulse Resp BP Pulse Ox 07/09/17 11:21 98.2 F 82 20 0/0 L 95 Departure - Departure Time of Disposition: 15:00 (EF OF 20% WAS RELAYED TO THE SURGEON) Disposition: TSF SHORT-TRM HOSP Discharge Problem: Abdominal pain, Acute cholecystitis Instructions: Cholecystitis (ED) Condition: Good Pt referred to PMD for follow-up: Yes IPMP verified?: No Additional Instructions: Please call your Family Physician as soon as possible to schedule a follow-up appointment. Allergies/Adverse Reactions: Allergies aspirin Adverse Reaction (Verified 07/09/17 11:20) cholecalciferol (vitamin D3) [From Vitamin D3] Adverse Reaction (Verified 11:20) ciprofloxacin Adverse Reaction (Verified 07/09/17 11:20) codeine Adverse Reaction (Verified 07/09/17 11:20) dexamethasone [From Decadron] Adverse Reaction (Verified 07/09/17 11:20) dexamethasone sod phosphate [From Decadron] Adverse Reaction (Verified 07/09/17 11:20) ergocalciferol (vitamin D2) [From Vitamin D2] Adverse Reaction (Verified 11:20) constipation fluticasone propionate [From Advair Diskus] Adverse Reaction (Verified 07/09/17 11:20) hydrochlorothiazide Adverse Reaction (Verified 07/09/17 11:20) angioedema salmeterol xinafoate [From Advair Diskus] Adverse Reaction (Verified 07/09/17 11 :20) spironolactone Adverse Reaction (Verified 07/09/17 11:20) Sulfa (Sulfonamide Antibiotics) Adverse Reaction (Verified 07/09/17 11:20) Home Medications: Ambulatory Orders Clopidogrel Bisulfate [Plavix] 75 mg PO DAILY 11/17/14 Furosemide [Lasix] 20 mg PO BID 11/17/14 [place]-3 Fatty Acids/Fish Oil [Fish Oil 1,000 mg Capsule] 1 each PO DAILY Pravastatin Sodium [Pravachol] 20 mg PO DAILY 11/17/14 Metolazone 2.5 mg PO DAILY PRN 12/28/15 Prednisone 2.5 mg PO EVERY OTHER DAY 12/28/15 Albuterol Sulfate [Proair Hfa] 2 puff INH Q4-6H PRN 04/04/16 L.acidoph,Paracasei, B.lactis [Probiotic] 1 cap PO DAILY 04/04/16 Furosemide [Lasix] 10 mg PO MOWEFR 04/05/16 Potassium Chloride [K-Tab ER] 20 meq PO DAILY #1 tablet.er 04/05/16 Sotalol HCl [Betapace] 40 mg PO BID 04/05/16 Allopurinol 100 mg PO DAILY 07/09/17
[2017-07-09] MEDS ORDERED: UNASYN 3 GM in SODIUM CHLORIDE 100 ML IV STA (13:53)
[2017-07-09] MEDS ORDERED: UNASYN ONE (14:02)
[2017-07-09 14:24] VITALS: BP 115/71; TEMP 97.5
== END 2017-07-09 14:49 | disposition short-term general hospital (02) ==
LOC: ED 11:17
DX: K81.0 Acute cholecystitis (principal); R10.9 Unspecified abdominal pain; I10 Essential (primary) hypertension; R05 Cough; K21.9 Gastro-esophageal reflux disease without esophagitis; Z86.73 Personal history of transient ischemic attack (TIA), and cerebral infarction without residual deficits; Z95.0 Presence of cardiac pacemaker
CPT/HCPCS: 36415; 80053; 81001; 82150; 83605; 83690; 84145; 85025; 85610; 85730; 87040; 93005; 93010; 96365; 99285

== ENCOUNTER 2017-11-23 16:21 | Emergency (ER) ==
[2017-11-23 17:12] VITALS: BP 100/67; TEMP 97.6; BMI 29.8
--- NOTE | 2017-11-23 18:23 | ED.PDOC ---
General ED Provider: Dr. KRISTIN GARCÍA Chief Complaint: Nausea/Vomiting Stated Complaint: shoulder pains and post chest wall pain, nauseated Time Seen by Physician: 16:23 (seen with pt's nurse TY ) Mode of Arrival: Wheelchair Information Source: Patient Exam Limitations: No limitations Primary Care Provider: AMPARO DIAZ Nursing and Triage Documentation Reviewed and Agree: Yes Does patient meet sepsis criteria?: No System Inflammatory Response Syndrome: Not Applicable Sepsis Protocol: For patient's 13 years and over: Temp is 96.8 and below OR 101 and greater Pulse >90 BPM Resp >20/minute Acutely Altered Mental Status Are patient's symptoms suggestive of a new infection, such as: -Pneumonia -Skin, Soft Tissue -Endocarditis -UTI -Bone, Joint Infection -Implantable Device -Acute Abdominal Infection -Wound Infection -Meningitis -Blood Stream Catheter Infection -Unknown Cardiovascular Complaint Exam - Chest Pain Complaint/Exam Onset: Gradual Duration: today mostly pain is upper back Symptoms Are: Still present Timing: Constant Initial Severity: Mild Current Severity: Mild Location: Reports: Discrete Pain Radiates: Reports: Back Character: Reports: Aching Aggravating: Reports: Exertion Alleviating: Reports: Rest, Upright position, Spontaneous resolution Associated Signs and Symptoms: Reports: Nausea, Back pain. Denies: Diaphoresis , Vomiting, Fever, Palpitations, Cough, Hemoptysis, Abdominal pain, Dizziness, Short of air, Calf pain, Calf swelling Related History: Reports: Similar episode Related Surgical History: Reports: None History of Healthcare-Acquired Pneumonia: Reports: No AMI/ACS Risk Factors: Reports: Sedentary, Diabetes (low EF), Hypertension TAD Risk Factors: Reports: Hypertension Pulmonary Embolism Risk Factors: Reports: Bedrest Prior Care for this Complaint: Yes (CAD) Recent Stress Test: No Recent Echo/LV Function: No JVD Present: No Subcutaneous Emphysema Present: No Diminshed Breath Sounds: No Reproducible Chest Wall Pain: No Bilateral Pulses Present: No Unequal Pulses Noted: No If Risk Factors for AMI/ACS Consider: EKG Differential Diagnoses: ACS, Stable Angina, GI Diseasae, Lower Resp. Infection Quality Indicators For Acute NC or Cardiac Chest Pain: EKG in 10min. Quality Indicator For Non-Traumatic Chest Pain/Syncope: EKG Performed Review of Systems - Review Of Systems Constitutional: Reports: No symptoms Eyes: Reports: No symptoms Ears, Nose, Mouth, Throat: Reports: No symptoms Respiratory: Reports: No symptoms Cardiac: Reports: Chest pain GI: Reports: No symptoms : Reports: No symptoms Musculoskeletal: Reports: No symptoms Skin: Reports: No symptoms Neurological: Reports: No symptoms Endocrine: Reports: No symptoms Hematologic/Lymphatic: Reports: No symptoms All Other Systems: Reviewed and Negative Past Medical History - Past Medical History Previously Healthy: Yes Endocrine: Reports: None Cardiovascular: Reports: Hypertension Respiratory: Reports: None Hematological: Reports: Anemia Gastrointestinal: Reports: GERD Genitourinary: Reports: None Neuro/Psych: Reports: TIA Musculoskeletal: Reports: Arthritis Cancer: Reports: None Last Menstrual Period: n/a - Surgical History General Surgical History: Reports: Pacemaker (defibrilltor. ) - Family History Family History: Reports: Heart - Social History Smoking Status: Former smoker Hx Substance Use: No Alcohol Screening: None Physical Exam - Physical Exam Appearance: Well-appearing, No pain distress, Well-nourished Eyes: ETTA, EOMI, Conjunctiva clear ENT: Ears normal, Nose normal, Oropharynx normal Respiratory: Airway patent, Breath sounds clear, Breath sounds equal, Respirations nonlabored Cardiovascular: RRR, Pulses normal, No rub, No murmur GI/: Soft, Nontender, No masses, Bowel sounds normal, No Organomegaly Musculoskeletal: Normal strength, ROM intact, No edema, No calf tenderness Skin: Warm, Dry, Normal color Neurological: Sensation intact, Motor intact, Reflexes intact, Cranial nerves intact, Alert, Oriented Psychiatric: Affect appropriate, Mood appropriate Interpretation - State Appellate Clerk Rate: Normal Rhythm: Sinus - EKG Interpretation Rate: Normal Rhythm: Sinus Ectopy: PVCs (MULTIFOCAL) [place]: Left Physician Notification - Case Discussed Physician Notified: PMD Time of Notification: 18:28 (TRANSFER ) Physician Notified: TRACY Time of Notification: 18:29 (TRANSFER ) Critical Care Note - Critical Care Note Total Time (mins): 0 Course - Course Hematology/Chemistry: 11/23/17 17:30 11/23/17 17:30 Orders, Labs, Meds: Lab Review 11/23/17 11/23/17 17:30 17:30 WBC 5.54 RBC 3.92 L Hgb 10.6 L Hct 31.6 L MCV 80.6 L MCH 27.0 MCHC 33.5 RDW Coeff of Greg 19.0 H Plt Count 233 Immature Gran % (Auto) 0.4 Neut % (Auto) 82.3 Lymph % (Auto) 8.3 L [place] % (Auto) 8.3 Eos % (Auto) 0.2 Baso % (Auto) 0.5 Immature Gran # (Auto) 0.0 Neut # (Auto) 4.6 Lymph # (Auto) 0.5 L [place] # (Auto) 0.5 Eos # (Auto) 0.0 Baso # (Auto) 0.0 Sodium 135 L Potassium 3.2 L Chloride 98 Carbon Dioxide 26 Anion Gap 14.2 BUN 31 H Creatinine 1.42 H Estimated GFR (MDRD) 44.00 BUN/Creatinine Ratio 21.83 Glucose 111 H Calcium 9.0 Total Bilirubin 2.1 H AST 32 ALT 20 Alkaline Phosphatase 123 Total Creatine Kinase 54 Troponin I 0.047 H Total Protein 7.6 Albumin 4.1 Globulin 3.5 Albumin/Globulin Ratio 1.17 Amylase 42 Lipase 51 Orders Category Date Time Status EKG-(ED ONLY) Stat CARDIO 11/23/17 17:23 Completed EKG-(ED ONLY) Stat CARDIO 11/23/17 18:17 Ordered NPO REMINDER: IMAGING ONCE CARE 11/23/17 17:44 Active AMYLASE Stat LAB 11/23/17 17:30 Completed CBC W/ AUTO DIFF Stat LAB 11/23/17 17:30 Completed COMPREHENSIVE METABOLIC PANEL Stat LAB 11/23/17 17:30 Completed CREATINE KINASE Stat LAB 11/23/17 17:30 Completed LIPASE Stat LAB 11/23/17 17:30 Completed TROPONIN I Stat LAB 11/23/17 17:30 Completed URINALYSIS C & S IF INDICATED Stat LAB 11/23/17 17:[address] ABDOMEN/PELVIS WO CONTRAST Stat RADS 11/23/17 17:[address] CHEST W/O CONTRAST Stat RADS 11/23/17 17:42 Taken CTA ANGIO CHEST Stat RADS 11/23/17 17:44 Ordered Vital Signs: Temp Pulse Resp BP Pulse Ox 11/23/17 16:22 97.6 F 83 16 100/67 94 L ITALO Risk Score ITALO Risk Score: Risk Score Odds of by 30D 0 0.1 (0.1-0.2) 1 0.3 (0.2-0.3) 2 0.4 (0.3-0.5) 3 0.7 (0.6-0.9) 4 1.2 (1.0-1.5) 5 2.2 (1.9-2.6) 6 3.0 (2.5-3.6) 7 4.8 (3.8-6.1) Departure - Departure Time of Disposition: 18:32 (NO ACUTE EVENT WHILE IN THE ED SPOKE TO PMD AND TRACY FABIAN AND TRANSFERED THE PT ) Disposition: TSF SHORT-TRM HOSP Discharge Problem: Nausea Chest pain Qualifiers: Chest pain type: unspecified Qualified Code(s): R07.9 - Chest pain, unspecified Instructions: Angina (ED) Condition: Good Pt referred to PMD for follow-up: Yes (TRACY ) IPMP verified?: No Allergies/Adverse Reactions: Allergies aspirin Adverse Reaction (Verified 11/23/17 17:12) cholecalciferol (vitamin D3) [From Vitamin D3] Adverse Reaction (Verified 17:12) ciprofloxacin Adverse Reaction (Verified 11/23/17 17:12) codeine Adverse Reaction (Verified 11/23/17 17:12) dexamethasone [From Decadron] Adverse Reaction (Verified 11/23/17 17:12) dexamethasone sod phosphate [From Decadron] Adverse Reaction (Verified 11/23/17 17:12) ergocalciferol (vitamin D2) [From Vitamin D2] Adverse Reaction (Verified 17:12) constipation fluticasone propionate [From Advair Diskus] Adverse Reaction (Verified 11/23/17 17:12) hydrochlorothiazide Adverse Reaction (Verified 11/23/17 17:12) angioedema salmeterol xinafoate [From Advair Diskus] Adverse Reaction (Verified 11/23/17 17 :12) spironolactone Adverse Reaction (Verified 11/23/17 17:12) Sulfa (Sulfonamide Antibiotics) Adverse Reaction (Verified 11/23/17 17:12) Home Medications: Ambulatory Orders Clopidogrel Bisulfate [Plavix] 75 mg PO DAILY 11/17/14 Furosemide [Lasix] 20 mg PO BID 11/17/14 [place]-3 Fatty Acids/Fish Oil [Fish Oil 1,000 mg Capsule] 1 each PO DAILY Pravastatin Sodium [Pravachol] 20 mg PO DAILY 11/17/14 Metolazone 2.5 mg PO DAILY PRN 12/28/15 Prednisone 2.5 mg PO EVERY OTHER DAY 12/28/15 Albuterol Sulfate [Proair Hfa] 2 puff INH Q4-6H PRN 04/04/16 L.acidoph,Paracasei, B.lactis [Probiotic] 1 cap PO DAILY 04/04/16 Furosemide [Lasix] 10 mg PO MOWEFR 04/05/16 Potassium Chloride [K-Tab ER] 20 meq PO DAILY #1 tablet.er 04/05/16 Sotalol HCl [Betapace] 40 mg PO BID 04/05/16 Allopurinol 100 mg PO DAILY 07/09/17
--- NOTE | 2017-11-23 18:34 | CT ---
Exam: CT scan of the thorax without contrast. Date: 11/23/2017. Comparison: None. HISTORY: Vomiting and coughing. Pain between the shoulder blades. TECHNIQUE: Helical scan of the thorax was performed without contrast. FINDINGS: A ventricular pacemaker is implanted in the soft tissues over the left thorax. The axilla ry regions are normal. There are subcentimeter mediastinal lymph nodes with granulomatous calcificat ions. The caliber of the thoracic aorta is normal. There is borderline four-chamber cardiac enlarge ment with a small pericardial effusion. Granulomatous calcifications are present in the spleen. The spleen and upper liver have a uniform attenuation. A cholecystectomy is noted. Minor multilevel degenerative changes are present in the thoracic spine. No acute osseous abnormaliti es are observed. Evaluation at lung window settings demonstrates a 0.8 cm noncalcified nodule in the posterior segment right upper lobe on image 27. The 0.3 cm noncalcified nodules also present in the posterior basilar segment right lower lobe on image 43. No pleural fluid or dense consolidation is present. The trac heobronchial tree is patent. Impression: No acute intrathoracic findings. There is a 0.8 cm noncalcified nodule in the posterior segment right upper lobe. A follow-up chest C T in 3 months would be recommended to document stability. Cardiomegaly with a small pericardial effusion. Echocardiography would be suggested if it has not be en previously performed. Ventricular pacemaker. Old granulomatous disease. Cholecystectomy.
--- NOTE | 2017-11-23 18:38 | CT ---
EXAM: Noncontrast CT of the abdomen and pelvis HISTORY: Pain COMPARISON: 07/09/2017 TECHNIQUE: Axial noncontrast CT of the abdomen pelvis with sagittal and coronal reformats. FINDINGS: The heart is enlarged. There is bibasilar interlobular septal thickening. Noncontrast technique limits evaluation of abdominal viscera. Hepatic and splenic calcified granuloma s are noted. The gallbladder has been removed. The unenhanced adrenals and right kidney appear unre markable. There is a small left renal nonobstructing calculus. The pancreas is mildly atrophic. No abnormal small bowel dilation is seen. Diverticulosis is seen without evidence of diverticulitis. No free air is seen. There is mild free pelvic fluid. Calcified atherosclerotic plaque of the aort a and some of its branches is seen. There is bilateral L5 spondylolysis with unchanged grade 1 cover stripper ior listhesis at L4-5 and grade 1 anterolisthesis at L5-S1. There is also mild grade 1 anterolisthes is at L2-3 and L3-4. Multilevel degenerative disc disease and facet arthropathy is again seen. There is a tiny fat containing umbilical hernia. IMPRESSION: Mild nonspecific free pelvic fluid. No other evidence of an acute intra-abdominal process. Diverticulosis. Left renal nonobstructing calculus. Other chronic findings as described above. Noncontrast exam.
== END 2017-11-23 19:01 | disposition short-term general hospital (02) ==
LOC: ED 16:21
DX: R07.9 Chest pain, unspecified (principal); R11.2 Nausea with vomiting, unspecified; E11.9 Type 2 diabetes mellitus without complications; I10 Essential (primary) hypertension; I25.10 Atherosclerotic heart disease of native coronary artery without angina pectoris; D64.9 Anemia, unspecified; Z79.899 Other long term (current) drug therapy; Z95.0 Presence of cardiac pacemaker; Z86.73 Personal history of transient ischemic attack (TIA), and cerebral infarction without residual deficits; M54.6 Pain in thoracic spine; I49.3 Ventricular premature depolarization; R79.89 Other specified abnormal findings of blood chemistry
CPT/HCPCS: 36415; 80053; 82150; 82550; 83690; 84484; 85025; 93005; 93010; 99285

== ENCOUNTER 2017-12-24 12:27 | Outpatient (CLI) | END 2017-12-24 12:28 | disposition home or self-care (01) | LOC: CAR 12:27 | PROVIDERS: ATTEND Internal Medicine | DX: R06.02 Shortness of breath (principal) | CPT/HCPCS: 94761 ==

== ENCOUNTER 2018-05-07 11:08 | Emergency (ER) | payer OTHER ==
[2018-05-07 11:13] VITALS: BP 103/70; TEMP 97.9; BMI 29.5
--- NOTE | 2018-05-07 11:19 | ED.PDOC ---
General ED Provider: Dr. ETHEL DIOP Chief Complaint: Constipation Stated Complaint: COMPLAINS OF CONSTIPATION. States has not had a BM in a week. Has attempted to have a BM by taking ExLax, Stool Softners and even had an enema last evening without results. Time Seen by Physician: 11:15 Mode of Arrival: Wheelchair Information Source: Patient, Family Exam Limitations: No limitations Primary Care Provider: AMPARO DIAZ Nursing and Triage Documentation Reviewed and Agree: Yes Does patient meet sepsis criteria?: No System Inflammatory Response Syndrome: Not Applicable Sepsis Protocol: For patient's 13 years and over: Temp is 96.8 and below OR 101 and greater Pulse >90 BPM Resp >20/minute Acutely Altered Mental Status Are patient's symptoms suggestive of a new infection, such as: -Pneumonia -Skin, Soft Tissue -Endocarditis -UTI -Bone, Joint Infection -Implantable Device -Acute Abdominal Infection -Wound Infection -Meningitis -Blood Stream Catheter Infection -Unknown GI Complaint Exam - Abdominal Pain Complaint/Exam Onset: Gradual Duration: 2-3 days Symptoms Are: Still present Timing: Intermittent Initial Severity: Moderate Current Severity: Moderate Location of Pain: LLQ Radiates To: Denies: Chest Character: Reports: Cramping Aggravating: Reports: Position Alleviating: Reports: Rest, Position Associated Signs and Symptoms: Reports: Constipation. Denies: Diaphoresis, Fever, Cough, Chest pain, Dizziness, Back pain, Blood in stool, Dysuria, Urinary frequency, Decreased urine output, Decreased appetite, Vaginal bleeding , Vaginal discharge, Nausea, Vomiting, Diarrhea, Sore throat, Decreased activity Related History: Reports: Similar episode Abdominal Findings: Present: None Rectal Exam: Present: Other (Fecal impaction) Differential Diagnoses: Constipation Review of Systems - Review Of Systems Constitutional: Reports: No symptoms Eyes: Reports: No symptoms Ears, Nose, Mouth, Throat: Reports: No symptoms Respiratory: Reports: No symptoms Cardiac: Reports: No symptoms GI: Reports: Abdominal pain, Constipated : Reports: No symptoms Musculoskeletal: Reports: No symptoms Skin: Reports: No symptoms Neurological: Reports: No symptoms Endocrine: Reports: No symptoms Hematologic/Lymphatic: Reports: No symptoms All Other Systems: Reviewed and Negative Past Medical History - Past Medical History Previously Healthy: Yes Endocrine: Reports: None Cardiovascular: Reports: Hypertension Respiratory: Reports: None Hematological: Reports: Anemia Gastrointestinal: Reports: GERD, Other (chronic constipation ) Genitourinary: Reports: None, Other (chronic dialysis) Neuro/Psych: Reports: TIA Musculoskeletal: Reports: Arthritis Cancer: Reports: None Last Menstrual Period: NONE - Surgical History General Surgical History: Reports: Pacemaker (defibrilltor. ) - Family History Family History: Reports: Heart - Social History Smoking Status: Former smoker Hx Substance Use: No Alcohol Screening: None Physical Exam - Physical Exam Appearance: Ill-appearing, Obese Ill-appearing: Mild Pain Distress: Moderate Eyes: ETTA, EOMI, Conjunctiva clear ENT: Ears normal, Nose normal, Oropharynx normal Neck: Supple Respiratory: Airway patent, Breath sounds clear, Breath sounds equal, Respirations nonlabored Cardiovascular: RRR, Pulses normal, No rub, No murmur GI/: Soft, Tender Musculoskeletal: Normal strength Skin: Warm, Dry, Normal color Neurological: Sensation intact, Motor intact Psychiatric: Affect appropriate, Mood appropriate Procedures - Additional Procedures Additional Procedures: Other (Manual Removal Fecal Impaction ) Critical Care Note - Critical Care Note Total Time (mins): 60 Course - Course Hematology/Chemistry: 05/07/18 12:30 Orders, Labs, Meds: Lab Review 05/07/18 12:30 WBC 9.35 RBC 4.62 Hgb 14.1 Hct 41.4 MCV 89.6 MCH 30.5 MCHC 34.1 RDW Coeff of Greg 17.7 H Plt Count 164 Immature Gran % (Auto) 0.3 Neut % (Auto) 90.5 Lymph % (Auto) 2.2 L [place] % (Auto) 6.8 Eos % (Auto) 0.1 Baso % (Auto) 0.1 Immature Gran # (Auto) 0.0 Neut # (Auto) 8.5 H Lymph # (Auto) 0.2 L [place] # (Auto) 0.6 Eos # (Auto) 0.0 Baso # (Auto) 0.0 Orders Category Date Time Status ED ENEMA/RECTAL TUBE .ONCE EMERGENCY 05/07/18 11:35 Active CBC W/ AUTO DIFF Stat LAB 05/07/18 12:30 Completed KUB [ABDOMEN 1 VIEW] Stat RADS 05/07/18 11:37 Completed Vital Signs: Temp Pulse Resp BP Pulse Ox 05/07/18 11:08 97.9 F 92 H 20 103/70 92 L Departure - Departure Time of Disposition: 13:00 Disposition: HOME SELF-CARE Discharge Problem: Acute constipation Instructions: Constipation (ED), High Fiber Diet (ED) Condition: Good Pt referred to PMD for follow-up: Yes IPMP verified?: No Additional Instructions: Miralax daily MOM 15 ml twice daily Stay well hydrated Increase diet fiber/metamucil Allergies/Adverse Reactions: Allergies aspirin Adverse Reaction (Verified 05/07/18 11:13) cholecalciferol (vitamin D3) [From Vitamin D3] Adverse Reaction (Verified 11:13) ciprofloxacin Adverse Reaction (Verified 05/07/18 11:13) codeine Adverse Reaction (Verified 05/07/18 11:13) dexamethasone [From Decadron] Adverse Reaction (Verified 05/07/18 11:13) dexamethasone sod phosphate [From Decadron] Adverse Reaction (Verified 05/07/18 11:13) ergocalciferol (vitamin D2) [From Vitamin D2] Adverse Reaction (Verified 11:13) constipation fluticasone propionate [From Advair Diskus] Adverse Reaction (Verified 05/07/18 11:13) hydrochlorothiazide Adverse Reaction (Verified 05/07/18 11:13) angioedema salmeterol xinafoate [From Advair Diskus] Adverse Reaction (Verified 05/07/18 11 :13) spironolactone Adverse Reaction (Verified 05/07/18 11:13) Sulfa (Sulfonamide Antibiotics) Adverse Reaction (Verified 05/07/18 11:13) Home Medications: Ambulatory Orders Amiodarone HCl 200 mg PO BID 03/06/18 Disposition Discussed With: Patient, Family
--- NOTE | 2018-05-07 12:09 | DI ---
EXAM: KUB HISTORY: Constipation with abdominal cramping FINDINGS: There appears to be slight excess fecal retention throughout most of the colon with sparin g of the descending and rectosigmoid. The rectum is clear. Bowel gas pattern is within normal limit s. No suspicious calcifications. Incidental note of incomplete fusion of the posterior elements of the upper sacral segment. IMPRESSION: 1. Findings consistent with the patient's history, the patient although the distal colon is clear an d the bowel gas pattern remains within normal limits.
== END 2018-05-07 13:18 | disposition home or self-care (01) ==
LOC: ED 11:08
DX: K59.00 Constipation, unspecified (principal); I10 Essential (primary) hypertension; Z86.73 Personal history of transient ischemic attack (TIA), and cerebral infarction without residual deficits; Z95.0 Presence of cardiac pacemaker
CPT/HCPCS: 36415; 85025; 99283